=== PATIENT | male | born 1985 | race Caucasian/White ===

== ENCOUNTER → 2016-08-16 | Outpatient (CLI) | payer OTHER | LOC: COL.RAD 08:22 | DX: Z53.9 Procedure and treatment not carried out, unspecified reason (principal) ==

== ENCOUNTER 2016-08-17 15:17 | Outpatient (RCR) | payer OTHER | END 2016-10-13 13:29 | disposition home or self-care (01) | LOC: WSOH 15:17 | DX: M79.644 Pain in right finger(s) (principal); X50.1XXD Overexertion from prolonged static or awkward postures, subsequent encounter; Y99.0 Civilian activity done for income or pay ==